=== PATIENT | male | born 1980 | race Caucasian/White ===

== ENCOUNTER 2016-09-18 16:57 | Emergency (ER) | payer BC ==
[~2016-09-18] VITALS: Ht 180.3 cm; Wt 78.1 kg
[2016-09-18 17:04] VITALS: TEMP 36.7; Ht 180.3 cm; Wt 78.1 kg
[2016-09-18] MEDS ORDERED: MULT-610 PO (17:27)
[2016-09-18] MEDS ORDERED: MULTI-VITAMIN INFUSION INJ 10 ML, THIAMINE HCL INJ 100 MG, FoLIC ACID INJ 1 MG in SODIU... IV ONE (17:45)
--- NOTE | 2016-09-18 17:49 | EMERGENCY ROOM VISIT NOTE ---
History Report prepared by Dylon: Mahesh Finley Under the Supervision of: Dr. Lele De M.D. First contact with patient: 17:26 Chief Complaint: NEURO SYMPTOMS Stated Complaint: ARM/FACE FEEL WEIRD, SOMEWHAT NUMB History of Present Illness The patient is a 36 year old male who presents to the Emergency Room with complaints of constant right arm and facial tingling beginning prior to arrival. The patient states that he was helping a friend move today, and he was lifting boxes and some heavy furniture. He reports that they loaded the car and drove to the new apartment. The patient notes that once they arrived his right arm and face began to tingle. He states that he is still experiencing his symptoms, but they have began to resolve. He notes that he he is right handed. The patient denies headache, weakness to his hand, falling, chest pain, edema to his legs, abdominal pain, and history of heart disease. He notes that a few months ago he lost 50 pounds by changing his diet and stopped drinking heavy alcohol. The patient states that he started exercising. He reports that over the last few weeks, he started experiencing lower back and leg pain. The patient notes that he is not sure if it has anything to do with his alcohol consumption. He notes that he does take a multi-vitamin daily. Source of History: patient Onset: prior to arrival Position: arm (right), other (right face) Quality: tingling Timing: constant Associated Symptoms: No headache, No chest pain, No abdominal pain, No weakness (to his legs) Note: The patient denies falling and edema to his legs. Review of Systems See HPI for pertinent positives & negatives. A total of 10 systems reviewed and were otherwise negative. Past Medical & Surgical Surgical Problems: (1) History of tooth extraction Family History Patient reports no known family medical history. Social History Smoking Status: Former Smoker Smokeless Tobacco Use: No Alcohol Use: occasionally Marital Status: Housing Status: lives with significant other Occupation Status: employed Current/Historical Medications Scheduled Methylprednisolone (Medrol Dosepak), 1 PKT PO UD Multiple Vitamins W/ Minerals (Centrum Adults), 1 TAB PO DAILY Allergies Coded Allergies: No Known Allergies (Unverified , 09/18/16) Physical Exam Vital Signs Date Time Temp Pulse Resp B/P (MAP) Pulse Ox O2 Delivery O2 Flow Rate FiO2 09/18/16 20:06 65 16 136/88 100 Room Air 09/18/16 19:23 66 16 140/89 100 Room Air 09/18/16 18:24 59 20 122/81 98 Room Air 09/18/16 18:23 59 09/18/16 18:15 Room Air 09/18/16 17:04 36.7 68 16 148/88 100 Room Air Physical Exam GENERAL: Patient is well and anxious appearing and in minimal distress. HEENT: No acute trauma, normocephalic atraumatic, mucous membranes moist, no nasal congestion, no scleral icterus. NECK: No stridor, no adenopathy, no meningismus, trachea is midline. LUNGS: No dyspnea. Clear to auscultation and equal bilaterally. No wheeze, no rhonchi. HEART: Regular rate and rhythm. No murmurs, rubs, gallops appreciated. ABDOMEN: Soft, nontender, bowel sounds positive, no masses appreciated, no peritonitis. BACK: No midline tenderness, no CVA tenderness EXTREMITIES: Normal motion all extremities, no cyanosis, no edema. NEUROLOGIC: Alert and oriented, no acute motor or sensory deficits, no focal weakness, cranial nerves grossly intact. SKIN: No rash, no jaundice, no diaphoresis. Medical Decision & Procedures ER Provider Diagnostic Interpretation: X ray results are stated below per my interpretation and the radiologist's interpretation. C-SPINE ROUTINE 4 OR 5 VIEWS CLINICAL HISTORY: Right arm paresthesias. COMPARISON STUDY: No previous studies for comparison. FINDINGS: Visualization of the cervical spine is adequate. No fracture or osseous lesion is identified by radiography. Facet joints are intact. Disc spaces are preserved. There is mild endplate osteophytosis. There is incomplete fusion of the posterior elements likely at the C3 level. IMPRESSION: 1. No cervical spine fracture. 2. Minimal multilevel degenerative changes of the cervical spine. 3. 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 Electronically signed by: Jason Smith M.D. 09/18/2016 7:08 PM Dictated Date/Time: 09/18/2016 7:04 PM Laboratory Results 09/18/16 18:15 Red Blood Count 4.50, Mean Corpuscular Volume 91.6, Mean Corpuscular Hemoglobin 30.0, Mean Corpuscular Hemoglobin Concent 32.8, Mean Platelet Volume 8.9, Neutrophils (%) (Auto) 75.7, Lymphocytes (%) (Auto) 13.9, Monocytes (%) (Auto) 8.0, Eosinophils (%) (Auto) 2.0, Basophils (%) (Auto) 0.3, Neutrophils # (Auto) 5.67, Lymphocytes # (Auto) 1.04, Monocytes # (Auto) 0.60, Eosinophils # (Auto) 0.15, Basophils # (Auto) 0.02 09/18/16 18:15 Test 09/18/16 18:15 White Blood Count 7.49 K/uL (4.8-10.8) Red Blood Count 4.50 M/uL (4.7-6.1) Hemoglobin 13.5 g/dL (14.0-18.0) Hematocrit 41.2 % (42-52) Mean Corpuscular Volume 91.6 fL (80-100) Mean Corpuscular Hemoglobin 30.0 pg (25-34) Mean Corpuscular Hemoglobin Concent 32.8 g/dl (32-36) Platelet Count 236 K/uL (130-400) Mean Platelet Volume 8.9 fL (7.4-10.4) Neutrophils (%) (Auto) 75.7 % Lymphocytes (%) (Auto) 13.9 % Monocytes (%) (Auto) 8.0 % Eosinophils (%) (Auto) 2.0 % Basophils (%) (Auto) 0.3 % Neutrophils # (Auto) 5.67 K/uL (1.4-6.5) Lymphocytes # (Auto) 1.04 K/uL (1.2-3.4) Monocytes # (Auto) 0.60 K/uL (0.11-0.59) Eosinophils # (Auto) 0.15 K/uL (0-0.5) Basophils # (Auto) 0.02 K/uL (0-0.2) RDW Standard Deviation 45.9 fL (36.4-46.3) RDW Coefficient of Variation 13.7 % (11.5-14.5) Immature Granulocyte % (Auto) 0.1 % Immature Granulocyte # (Auto) 0.01 K/uL (0.00-0.02) Anion Gap 5.0 mmol/L (3-11) Est Creatinine Clear Calc Drug Dose 123.3 ml/min Estimated GFR () 128.4 Estimated GFR (Non- 110.8 BUN/Creatinine Ratio 12.4 (10-20) Calcium Level 9.5 mg/dl (8.5-10.1) Magnesium Level 2.1 mg/dl (1.8-2.4) Total Bilirubin 0.3 mg/dl (0.2-1) Direct Bilirubin < 0.1 mg/dl (0-0.2) Aspartate Amino Transf (AST/SGOT) 18 U/L (15-37) Alanine Aminotransferase (ALT/SGPT) 28 U/L (12-78) Alkaline Phosphatase 95 U/L (45-117) Total Creatine Kinase 170 U/L (39-308) Troponin I < 0.015 ng/ml (0-0.045) Total Protein 7.1 gm/dl (6.4-8.2) Albumin 4.0 gm/dl (3.4-5.0) Laboratory results as reviewed by me. Medications Administered Medications (Trade) Dose Ordered Sig/[facility] Route Start Time Stop Time Status Last Admin Dose Admin Multivitamins 10 ml/Thiamine HCl 100 mg/Folic Acid 1 mg/Sodium Chloride 1,011.2 ml @ 500 mls/ hr Q2H2M ONCE IV 09/18/16 17:45 09/18/16 19:46 DC 09/18/16 18:31 500 MLS/HR Prednisone (PredniSONE TAB) 60 mg NOW STAT PO 09/18/16 20:16 09/18/16 20:17 DC 09/18/16 20:26 60 MG ECG Indication: weakness Rate (beats per minute): 58 Rhythm: sinus bradycardia Findings: no acute ischemic change, no ectopy ED Course 172: The patient was evaluated in room B04B. A complete history and physical exam was performed. 1744: Ordered Multivitamins 10ml/Thiamine HCl 100mg/Folic Acid 1mg/Sodium Chloride 1,011.2 ml @ 500 mls/hr. 2016: Ordered Prednisone 60mg PO 2017: Reevaluated the patient. He is almost showing complete resolution fo symptoms and wants to go home. Discussed results and discharge instructions: he verbalized understanding and agreement. The patient is ready for discharge. Medical Decision Medication Reconciliation: I attest that I have personally reviewed the patient 's current medication list. 36 yr old male arrives with complaint of right arm paresthesias. No neuro deficits and exam is normal. Admits alcoholic though recently quit drinking and got life in order, loosing 50 lbs last few months. Admits periodic odd paresthesias as well in different extremities over last few months. Labs unremarkable. Cervical imaging with some degenerative findings. Stable vitals. Given Banana bag with his history though I feel it unlikely thiamine/ folate related as he says he does take multivitamin daily. Feeling well without further issues. Will try some steroids for possible cervical radiculopathy but without neuro deficits I feel that MRI not indicated currently. No injury not reason to feel this is dissection. Does not appear infectious in nature. No evidence of rhabdo. I did discuss that this may all just be MSK secondary to overuse while moving furniture. Reviewed symptoms requiring RTED. Stable and feeling well at discharge with . Impression Primary Impression: Cervical radiculopathy Additional Impression: Arm paresthesia, right Scribe Attestation The scribe's documentation has been prepared under my direction and personally reviewed by me in its entirety. I confirm that the note above accurately reflects all work, treatment, procedures, and medical decision making performed by me. Departure Information Dispostion Home / Self-Care Prescriptions Methylprednisolone (MEDROL DOSEPAK) 4 Mg Ibrahima 1 PKT PO UD for 6 Days, #1 PKT Prov: Lele De M.D. 09/18/16 Referrals Murali Cruz MD (PCP) Patient Instructions ED Cervical Radiculopathy, My [facility] Problem Qualifiers
[2016-09-18 18:37] LABS: BASO % 0.3 %; BASO ABS # 0.02 K/uL (0-0.2); COMPLETE YES; HEMATOCRIT 41.2 % (42-52); IG% 0.1 %; LYMPH % 13.9 %; LYMPH ABS # 1.04 K/uL (1.2-3.4); MEAN CELL VOLUME 91.6 fL (80-100); MEAN CORPUSCULAR HGB CONC 32.8 g/dl (32-36); MEAN PLATELET VOLUME 8.9 fL (7.4-10.4); NEUT % 75.7 %; PLATELET COUNT 236 K/uL (130-400); WHITE BLOOD COUNT 7.49 K/uL (4.8-10.8)
[2016-09-18 18:58] LABS: ALT/SGPT 28 U/L (12-78); AST/SGOT 18 U/L (15-37); BLOOD UREA NITROGEN 11 mg/dl (7-18); BUN/CREATININE RATIO 12.4 (10-20); CALCIUM 9.5 mg/dl (8.5-10.1); CARBON DIOXIDE 29 mmol/L (21-32); CHLORIDE 108 mmol/L (98-107); CREATININE 0.89 mg/dl (0.60-1.40); GLUCOSE 95 mg/dl (70-99); MAGNESIUM 2.1 mg/dl (1.8-2.4); POTASSIUM 3.8 mmol/L (3.5-5.1); SODIUM 142 mmol/L (136-145)
[2016-09-18 19:03] LABS: ALKALINE PHOSPHATASE 95 U/L (45-117)
--- NOTE | 2016-09-18 19:09 | DIAGNOSTIC IMAGING REPORT ---
C-SPINE ROUTINE 4 OR 5 VIEWS CLINICAL HISTORY: Right arm paresthesias. COMPARISON STUDY: No previous studies for comparison. FINDINGS: Visualization of the cervical spine is adequate. No fracture or osseous lesion is identified by radiography. Facet joints are intact. Disc spaces are preserved. There is mild endplate osteophytosis. There is incomplete fusion of the posterior elements likely at the C3 level. IMPRESSION: 1. No cervical spine fracture. 2. Minimal multilevel degenerative changes of the cervical spine. 3. 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 Electronically signed by: Jason Smith M.D. 09/18/2016 7:08 PM Dictated Date/Time: 09/18/2016 7:04 PM
[2016-09-18 20:06] VITALS: BP 136/88; PULSE 65; O2SAT 100
[2016-09-18] MEDS ORDERED: METH4PAK PO (20:16)
== END 2016-09-18 20:28 | disposition home or self-care (01) ==
LOC: C.EDB 16:59
DX: M54.12 Radiculopathy, cervical region (principal); R20.2 Paresthesia of skin; R00.1 Bradycardia, unspecified; Z87.891 Personal history of nicotine dependence